=== PATIENT | male | born 1955 | race Caucasian/White ===

== ENCOUNTER 2018-10-31 18:33 | Observation (INO) | payer OTHER ==
[2018-10-31 19:46] LABS: #Basophils 0.1 thou/uL (0.0-0.2); #Eosinphils 0.5 thou/uL (0.0-0.7); #Lymphocytes 2.5 thou/uL (1.20-3.40); #Monocytes 0.8 thou/uL (0.11-0.59); #Neutrophils 5.7 thou/uL (1.40-6.50); %Basophils 0.7 % (0.0-1.0); %Eosinophils 4.9 % (0.0-10.0); %Lymphocytes 26.4 % (21.0-51.0); %Monocytes 8.1 % (0.0-10.0); Hemoglobin 15.6 g/dL (14.0-18.0); Mean Corpuscular HGB CONC 32.8 g/dL (32.0-36.0); Mean Corpuscular Hemoglobin 29.3 pg (27.0-31.0); Mean Corpuscular Volume 89.3 fL (78.0-98.0); Mean Platelet Volume 6.9 fL (7.4-10.4); Platelet Count 194 thou/uL (130-400); RBC Distribution Width 12.3 % (11.5-14.5); Red Blood Cell (RBC) Count 5.32 mill/uL (4.70-6.10); White Blood Cell (WBC) Count 9.6 thou/uL (4.8-10.8)
--- NOTE | 2018-10-31 20:00 | RAD ---
Portable chest: HISTORY: Syncope COMPARISON: 12/10/2011 FINDINGS: Lung jennings are clear. Heart and mediastinum appear unremarkable. Vascularity is normal. Visualized osseous structures unremarkable. IMPRESSION: No acute finding
--- NOTE | 2018-10-31 20:02 | RAD ---
EXAM: Right forearm: 2 views INDICATIONS: Trauma COMPARISON: None. FINDINGS: No fracture. No osseous abnormality. IMPRESSION: No acute finding
[2018-10-31 20:06] LABS: ALT (SGPT) 35 U/L (8-55); AST (SGOT) 28 U/L (5-34); Albumin 4.3 g/dL (3.4-4.8); Alkaline Phosphatase 54 U/L (40-150); Anion Gap 15 mmol/L (10-20); BUN (Urea Nitrogen) 12 mg/dL (8.4-25.7); Bilirubin, Total 0.9 mg/dL (0.2-1.2); CK (CPK) 90 U/L (30-200); Calc. Creatinine Clearance 0 mL/min (70-130); Calcium 9.9 mg/dL (7.8-10.44); Carbon Dioxide 23 mmol/L (23-31); Chloride 102 mmol/L (98-107); Estimated GFR-MDRD 89; Globulin 2.9 g/dL (2.4-3.5); Glucose 139 mg/dL (80-115); Protein, Total 7.2 g/dL (5.8-8.1); Sodium 136 mmol/L (136-145)
--- NOTE | 2018-10-31 20:46 | CT ---
CT HEAD WITHOUT CONTRAST: 10/31/18 INDICATIONS: Syncope. COMPARISON: 12/10/11. FINDINGS: Ventricles have normal size and position. No evidence of mass, edema, hemorrhage, or infarct. The sin uses are clear. Tiny calcification along the dural surface anteriorly on the right probably represents a tiny calcifi ed meningioma, unchanged from the prior exam. IMPRESSION: No acute process. POS: [facility]
[2018-10-31 21:27] LABS: Bacteria/HPF None Seen HPF (None Seen); Bilirubin Negative (Negative); Blood, Urine Negative (Negative); Clarity Clear (Clear); Glucose, Urine (Dipstick) Normal (Negative); Leukocyte 25 Leu/uL (Negative); Nitrite Negative (Negative); Protein, Urine (Dipstick) Negative (Neg-Trace); RBC/HPF 0-3 HPF (0-3); Squamous Epithelial 0-3 HPF (0-3); Urobilinogen Normal mg/dL (Less than 2)
--- NOTE | 2018-10-31 21:45 | PDOC.FPRHP ---
Addendum entered and electronically signed by Juan Ramon Jang DO 11/01/18 04 :22: Pt has 1st degree heart block not prolonged QT Original Note: - History of Present Illness Chief Complaint: Syncope History of Present Illness: Pt is a 63yo male who presents to the ED for syncope, diarrhea, and generalized weakness. Pt states that last night around 2100 he was sitting in a chair when he got up and immediately felt dizzy and lost consciousness. He states that he woke up three hours later feeling "funny". Pt states he feels he injured his right forearm and hit his head during the fall. Today the pt stated that he stayed home from work and in the afternoon developed N/V/D and generalized weakness with one episode of fecal incontinence before he could make it to the bathroom. He also notes that getting up from his bed and the toilet today he had near syncopal episodes. He denies having any focal weakness or numbness but states that coworkers came to check on him this evening and felt his speech may have been slightly slurred and suggested he come to the ED. Pt feels that his speech is normal now and friend accompanying him agrees. Pt's friend accompanying him states that the pt also told her about a time 1-2 weeks ago where his legs quickly gave out on him without warning. He states that the episodes the last couple days felt very different. Pt has a history of BERT and is supposed to be on Cpap but does not use it. Pt has been borderline diabetic for a long time and recently was told he has diabetes although is not on any medications for it. He notes pedal neuropathy bilaterally. Pt notes that he has had some mild dysuria for the past 3 months, denies history of BPH however is on flomax. Denies any history of UTI. ED Course: 1L bolus of NS, normal head CT, CXR, forearm xray, and EKG. Creatinine, trops, BNP, WBC, Hgb WNL - Allergies/Adverse Reactions Allergies Allergy/AdvReac Type Severity Reaction Status Date / Time No Known Allergies Allergy Verified 10/31/18 23:56 - Home Medications Medication Instructions Recorded Confirmed Type Aspirin [Aspir-Low] 81 mg PO HS 10/31/18 11/01/18 History DULoxetine HCl [Duloxetine HCl] 30 mg PO HS 10/31/18 10/31/18 History Fluticasone Propionate [Flonase 1 spray EA NARE DAILY PRN 10/31/18 11/01/18 History Nasal [place]] Gabapentin 1 - 2 cap PO HS 10/31/18 10/31/18 History Lactobacillus Acidophilus 1 capsule PO DAILY 10/31/18 11/01/18 History [Probiotic] Metoprolol Succinate [Toprol XL] 100 mg PO HS 10/31/18 10/31/18 History [place]-3S/DHA/EPA/Fish Oil [Fish 1 each PO BID 10/31/18 11/01/18 History Oil [place]-3 Softgel] Pravastatin Sodium [Pravachol] 20 mg PO HS 10/31/18 10/31/18 History Tamsulosin HCl 0.4 mg PO HS 10/31/18 10/31/18 History Zolpidem Tartrate 10 mg PO HS 10/31/18 10/31/18 History tiZANidine HCl [Tizanidine HCl] 4 mg PO HS 10/31/18 11/01/18 History - History PMHx: CAD, DM, HTN, gout, kidney stones PSHx: Cardiac cath with stent, Rt knee, tonsillectomy, sinus surgery FHx: Social: Remote hx of tobacco use - Review of Systems General: reports: fatigue. denies: fever/chills Respiratory: denies: shortness of breath Cardiovascular: denies: chest pain, palpitation, edema Gastrointestinal: reports: nausea, vomiting, diarrhea. denies: abdominal pain Genitourinary: reports: incontinence (fecal x1) Skin: denies: rashes Musculoskeletal: reports: pain (right forearm). denies: swelling Neurological: reports: syncope, weakness (generalized). denies: numbness, seizure - Vital signs BP: [] HR: [] RR: [] Tmax: [] Pox: []% on [] Wt: [] - Physical Exam Constitutional: NAD, awake, alert and oriented, well developed HEENT: normocephalic and atraumatic -HEENT: dry mucous membranes Neck: FROM, no bruits -Neck: Slight JVD Heart: RRR, normal S1/S2, pulses present -Heart: Distant heart sounds Lungs: no respiratory distress, good air movement, no wheezing Abdomen: soft, non-tender, bowel sounds present Musculoskeletal: normal tone, ROM grossly normal Neurological: no focal deficit, CN II-XII intact, normal sensation Skin: no rash/lesions Psychiatric: normal mood and affect, good judgment and insight, intact recent and remote memory FMR H&P: Results - Labs Result Diagrams: 10/31/18 19:37 10/31/18 19:37 Lab results: WBC 9.6 thou/uL (4.8-10.8) 10/31/18 19:37 Hgb 15.6 g/dL (14.0-18.0) 10/31/18 19:37 Hct 47.5 % (42.0-52.0) 10/31/18 19:37 MCV 89.3 fL (78.0-98.0) 10/31/18 19:37 Plt Count 194 thou/uL (130-400) 10/31/18 19:37 Neutrophils % 60.0 % (42.0-75.0) 10/31/18 19:37 Sodium 136 mmol/L (136-145) 10/31/18 19:37 Potassium 4.0 mmol/L (3.5-5.1) 10/31/18 19:37 Chloride 102 mmol/L (98-107) 10/31/18 19:37 Carbon Dioxide 23 mmol/L (23-31) 10/31/18 19:37 BUN 12 mg/dL (8.4-25.7) 10/31/18 19:37 Creatinine 0.86 mg/dL (0.7-1.3) 10/31/18 19:37 Glucose 139 mg/dL (80-115) H 10/31/18 19:37 Calcium 9.9 mg/dL (7.8-10.44) 10/31/18 19:37 Total Bilirubin 0.9 mg/dL (0.2-1.2) 10/31/18 19:37 AST 28 U/L (5-34) 10/31/18 19:37 ALT 35 U/L (8-55) 10/31/18 19:37 Alkaline Phosphatase 54 U/L (40-150) 10/31/18 19:37 Creatine Kinase 90 U/L (30-200) 10/31/18 19:37 B-Natriuretic Peptide 74.8 pg/mL (0-100) 10/31/18 19:37 Serum Total Protein 7.2 g/dL (5.8-8.1) 10/31/18 19:37 Albumin 4.3 g/dL (3.4-4.8) 10/31/18 19:37 Urine Ketones Negative mg/dL (Negative) 10/31/18 21:14 Urine Blood Negative (Negative) 10/31/18 21:14 Urine Nitrite Negative (Negative) 10/31/18 21:14 Ur Leukocyte Esterase 25 Deejay/uL (Negative) 10/31/18 21:14 Urine RBC 0-3 HPF (0-3) 10/31/18 21:14 Urine WBC 4-6 HPF (0-3) A 10/31/18 21:14 Ur Squamous Epith Cells 0-3 HPF (0-3) 10/31/18 21:14 Urine Bacteria None Seen HPF (None Seen) 10/31/18 21:14 - Radiology Interpretation CT scan - head Status: report reviewed by me (No acute process, old unchanged meningioma) Chest x-ray Status: report reviewed by me (No acute process) Other Status: report reviewed by me (Rt forearm - no acute process) FMR H&P: A/P - Problem List (1) Syncope and collapse Status: Acute Code(s): R55 - SYNCOPE AND COLLAPSE - Plan # Syncope Likely orthostatic hypotension vs Cardiogenic vs Neurogenic vs Vasovagal vs Medication Pt has history of CAD w/ stent placement in 2013. Na, K WNL. He is unsure of events before/after fall but denied tongue lac, incontinence. Hx of neuropathy could affect autonomics. Dry on exam. He had not taken ambien before the episode. He currently is followed by Dr. Sharp, pm technician, who he sees [id number] and is due for an appt. - Orthostatics pending - Tele - CTA Head and Neck pending, echo pending - Phosp, Mg pending - Stress test ordered for morning - d/c ambien - cont home aspirin 81 mg - trop trending, initial negative - d/c any agents that contribute to hypotension, d/c tizanidine # Lower Extremity Neuropathy - continue home meds # HTN - held metoprolol for stress test # Insomnia - d/c ambien # BPH - continue home meds but follow up as outpt as he remains symptomatic # Gout - continue home preventive meds # HLD - cont home meds # Elevated Glucose Hx of borderline DM - follow up as outpt # Prolonged QT Diet: NPO after midnight Fluids: 125 mls/hr NS DVT Prophylaxis: Lovenox Code Status: Full FMR H&P: Upper Level - Pertinent history 63 year old male presents after two syncopal episodes yesterday. Patient states that yesterday evening he was sitting on the couch, and upon standing up he got dizzy and fell. He reports being out for three hours. He woke up and felt "weird ". He proceeded to go to bed. In the middle of the night he got up to use the restroom and again "fell over". He reports feeling weak today. He also had several episodes of diarrhea and emesis today which he does not report having yesterday. Patient states that he did have one other fall a few weeks ago. He states his legs "crumbled" underneath him at that time. Patient denies chest pain, shortness of breath, fever, or chills. Patient reports he only came to the ER today, because he did not show up for work today and the people he worked with got worried and showed up at his house. They strongly encouraged him to go to the ER, and so he obliged. Patient denies any unilateral weakness. Patient has PMH significant for CAD s/p stent placement x2 approximately 4 years ago. He states that he has been compliant with medications. - Pertinent findings General: Alert and oriented x3. NAD. HEENT: Dry MM. EOMI. PERRL. Card: Distant heart sounds. No audible murmur. RRR. Resp: Very distant breath sounds. Difficult exam due to body habitus. Abdomen: Mild suprapubic tenderness. Ext: No edema. Neuro: No focal deficits. - Plan Date/Time: 10/31/182144 ILilian, have evaluated this patient and agree with findings/plan as outlined by financial services intern resident. Pertinent changes/additions are listed here. Syncope likely 2/2 orthostatic hypotension - Mild dehydration s/p 1L fluid bolus in ED - IVF NS at 100 mL/hr - NPO at midnight for cardiac stress test, will hold BB - Trend troponin (initial neg) - Echo pending - Orthostatic vital signs pending - Rule out carotid artery occlusion via CTA neck - Continuous telemetry monitoring - 1st degree heart block on EKG - Mg and P pending, other electrolytes WNL - Will obtain risk stratification labs to include FLP, HgA1c, TSH - CXR: No acute abnormalities - BNP 74 Lower Extremity Neuropathy - Continue home meds HTN - Continue home meds Insomnia - Would hold ambien given recent events BPH - continue home meds Gout - Continue home preventive meds HLD - Cont home meds DM type II - Recent diagnosis per patient - Does not appear to be on any medications - Will check HgA1c DVT Prophylaxis: Lovenox Code Status: Full Dispo: Obs on telemetry. Addendum - Attending - Attending Attestation Date/Time: 10/31/18 0057 I personally evaluated the patient and discussed the management with resident team I agree with the History, Examination, Assessment and Plan documented above with any addition or exceptions noted below. 63 yo male with history of DM, HTN, HLD, CAD, BERT, former smoker, BPH presents for evaluation of passing out. Patient reports symptoms of presyncope and syncope over the past week. 3 episodes yesterday. Lives alone. States last night upon getting up from chair became dizzy. Patient states this was around 1700. Next memory recall patient was on the ground in front of his chair and it was 0000. Patient denies associated symptoms. Did not notify anyone. Stating "I'm stubborn." Able to get to bed. Not able to really fall asleep but denies any symptoms. Woke this morning. Again felt dizzy. Had to brace self when walking to bathroom. Getting up from toliet, again dizzy. Reports he almost passed out in the tube. Patient reports he did not go to work today. Since not showing up members from work and local police arrived at his home. EMS was contacted and patient brought to [facility]. Vitals, labs, imaging, and medical record reviewed. Will admit patient to tele. Monitor closely throughtout the night for arrhythmias. Trend labs. Stress and ECHO in AM. CTA neck pending. Add orthostatic vitals with BP and HR. Patient with complications of neuropathy could potentially have complications with carotid sinus. Trend trop to rule out ischemic changes. If negative findings on initial workup will need follow up tilt testing and cards event monitoring. Arleen
[2018-10-31 23:10] LABS: Troponin I Less than 0.010 ng/mL (< 0.028)
[2018-10-31 23:50] VITALS: BMI 39.9
[2018-11-01] MEDS ORDERED: Ondansetron ODT 4 MG TAB PO PRN (00:12)
[2018-11-01] MEDS ORDERED: Acetaminophen 325 MG TAB PO PRN (00:12)
[2018-11-01] MEDS ORDERED: Ondansetron PF 4 MG/2 ML Vial IVP PRN (00:12)
[2018-11-01 00:31] LABS: Phosphorus 3.3 mg/dL (2.3-4.7)
[2018-11-01] MEDS: Sodium Chloride 0.9% 1,000 ML IV SCH ×3 (00:42→15:47)
[2018-11-01 02:35] LABS: Troponin I 0.036 ng/mL (< 0.028)
[2018-11-01] MEDS ORDERED: Fluticasone Propionate Nasal Spray 16 gm Bottle NASAL PRN (03:44)
[2018-11-01 07:09] LABS: Hemoglobin A1c 6.7 % (4.0-6.0)
--- NOTE | 2018-11-01 07:12 | PDOC.FM ---
- Subjective Subjective: Pt reports recently losing 20 lbs intentionally and skipping meals. He also reports increased stress at work. He has been drinking plenty of water. Overnight, no episodes of dizziness, syncope, or chest pain. - Objective MAR Reviewed: Yes Vital Signs & Weight: Vital Signs (12 hours) Temp Pulse Resp BP BP Pulse Ox 11/01/18 04:26 97.6 F 67 19 163/80 H 95 10/31/18 23:05 97.8 F 62 18 162/75 H 94 L Weight Weight 133.764 kg I&O: 10/31/18 11/01/18 11/02/18 06:59 06:59 06:59 Intake Total 586 Output Total 950 Balance -364 Result Diagrams: 10/31/18 19:37 10/31/18 19:37 Phys Exam - Physical Examination Constitutional: NAD HEENT: moist MMs Respiratory: no wheezing, clear to auscultation bilateral Cardiovascular: RRR, no significant murmur Gastrointestinal: soft, no distention, positive bowel sounds Musculoskeletal: no edema, pulses present Neurological: moves all 4 limbs Psychiatric: A&O x 3 Skin: cap refill <2 seconds Dx/Plan (1) HTN (hypertension) Code(s): I10 - ESSENTIAL (PRIMARY) HYPERTENSION Status: Acute (2) Insomnia Code(s): G47.00 - INSOMNIA, UNSPECIFIED Status: Acute (3) BPH (benign prostatic hyperplasia) Code(s): N40.0 - BENIGN PROSTATIC HYPERPLASIA WITHOUT LOWER URINRY TRACT SYMP Status: Acute (4) Gout Code(s): M10.9 - GOUT, UNSPECIFIED Status: Acute (5) Syncope and collapse Code(s): R55 - SYNCOPE AND COLLAPSE Status: Acute - Plan Plan: This is a 63 yo male with a pmh of HTN, BPH, Gout Syncope likely 2/2 orthostatic hypotension, plan to rule out cardiogenic -Normal orthostatics after rescussitation -Pending Echo -Normal CT and CTA head -Pending stress test -DC agents that can contribute to dizziness or orthostasis Lower Extremity Neuropathy -Continue home gabapentin HTN -Metoprolol held for stress test Insomnia -DC ambien and consider other alternatives BPH -continue flomax but consider finasteride if this continues to be an issue Gout -Continue preventative meds HLD -COntinue home meds DM2, newly diagnosed -Hemoglobin A1c is 6.7 -Consider starting on metformin ER Prolonged QT -Avoid medications that worsen condition Addendum - Attending - Attending Attestation Date/Time: 11/01/18 1855 I personally evaluated the patient and discussed the management with Dr. West. I agree with the History, Examination, Assessment and Plan documented above with any addition or exceptions noted below. The patient is feeling better. Echo was being taken during our visit. Results are pending. If they are normal, pt will likely d/c home.
[2018-11-01 07:23] LABS: Cardiac Risk 5.7 (Less than 4.5)
[2018-11-01] MEDS ORDERED: hydrALAZINE 20 MG/ML VIAL SLOW IVP PRN (07:23)
[2018-11-01 07:28] LABS: Troponin I Less than 0.010 ng/mL (< 0.028)
--- NOTE | 2018-11-01 08:03 | CT ---
PRELIMINARY REPORT/[facility]/EMERGENCY AFTER HOURS PROCEDURE: EXAM: CT Angiography Head Without And With Contrast EXAM DATE/TIME: 11/01/2018 1:11 AM CLINICAL HISTORY: 63 years old, male; Syncope and collapse; Patient HX: Syncope episode x3 unwitnessed at home TECHNIQUE: Imaging protocol: Computed tomographic angiography images of the head without and with intravenous contrast using CT angiography protocol. Coronal and sagittal reformatted images were created and reviewed. 3D rendering: MIP reconstructed images were created and reviewed. COMPARISON: No relevant prior studies available. FINDINGS: Right internal carotid artery: Unremarkable. Intracranial segment is patent with no significant stenosis. No aneurysm. Right anterior cerebral artery: Unremarkable. No occlusion or significant stenosis. No aneurysm. Right middle cerebral artery: Unremarkable. No occlusion or significant stenosis. No aneurysm. Right posterior cerebral artery: There is origin of the right posterior cerebral artery, a norm al anatomic variant. No stenosis or occlusion. Right vertebral artery: Unremarkable. No occlusion or significant stenosis. No aneurysm. Left internal carotid artery: Unremarkable. Intracranial segment is patent with no significant stenosis. No aneurysm. Left anterior cerebral artery: Unremarkable. No occlusion or significant stenosis. No aneurysm. Left middle cerebral artery: Unremarkable. No occlusion or significant stenosis. No aneurysm. Left posterior cerebral artery: Unremarkable. No occlusion or significant stenosis. No aneurysm. Left vertebral artery: Unremarkable. No occlusion or significant stenosis. No aneurysm. Basilar artery: Unremarkable. No occlusion or significant stenosis. No aneurysm. HEAD: Brain: Unremarkable. No hemorrhage. No significant white matter disease. No edema. Ventricles: Normal. No ventriculomegaly. Bones/joints: Unremarkable. No acute fracture. Sinuses: Visualized sinuses are normal. No fluid levels. Mastoid air cells: Visualized mastoids are normal. No mastoid effusion. Soft tissues: Unremarkable. IMPRESSION: No acute abnormality. Thank you for allowing us to participate in the care of your patient. Dictated and Authenticated by: Lauren Thakkar MD 11/01/2018 1:50 AM Central Time ([place] & [place]) FINAL INTERPRETATION CT ANGIOGRAM HEAD CT ANGIOGRAM NECK: Date: 11/01/18 COMPARISON: None. HISTORY: 3 episodes of syncope. FINDINGS: I agree with the preliminary report. Axial CT imaging through the head and neck provided at 1.25 mm intervals with IV contrast using CT an giogram protocol. Coronal and sagittal 3-D reformatted imaging provided. The imaged lung apices are unremarkable. The imaged paranasal sinuses and mastoid air cells are grossly unremarkable. The retroantral fat and parapharyngeal fat appears clear. Submandibular glands and parotid glands are grossly unremarkable aside from fatty infiltration of bilateral parotid glands. Limited assessment of the aerodigestive tract appears grossly unremarkable. No lymphadenopathy is francisca dent within the neck. The origin of the left subclavian artery, left common carotid artery, innominate artery, right subcla vian artery and right common carotid artery appear grossly unremarkable. On the basis of NASCET criteria, no hemodynamically significant stenosis is seen involving the common carotid artery on either side. There is mild atherosclerotic calcification at the origin of the right internal carotid artery with n o associated stenosis. There is partially calcified plaque involving the proximal 2 cm of the left internal carotid artery. There is mild associated stenosis involving the left internal carotid artery in this region, estimated at approximately 25-30%. No hemodynamically significant stenosis noted involving either int ernal carotid artery. The distal aspect of bilateral common carotid arteries demonstrate a medialized retropharyngeal course. The vertebral artery is patent bilaterally. The basilar artery and its branches are patent. There is a patent posterior communicating artery bilaterally. The left posterior cerebral artery probably demonstrates a origin. No saccular aneurysm, high-grade stenosis, or vascular occlusion is seen involving the posterior circulation. The ICA bifurcation is unremarkable bilaterally. The A1 and M1 segment is patent bilaterally. MCA bif urcation appears grossly unremarkable bilaterally. The distal MCA and MIRIAM branches appear grossly unremarkable. There is a benign hemangioma within the T1 vertebral body. There is degenerative change at C6-7 with no worrisome lytic or blastic bone lesion noted. IMPRESSION: No acute findings within the head or neck. Numerous incidental findings as detailed above. Code QA Transcribed Date/Time: 11/01/2018 8:21 AM
[2018-11-01] MEDS ORDERED: Enoxaparin Sodium 40 MG/0.4 ML SYRINGE SC SCH (09:00)
[2018-11-01] MEDS ORDERED: Fish Oil 1,000 MG CAP PO SCH (09:00)
[2018-11-01] MEDS ORDERED: Lactinex Tablet PO SCH (09:00)
[2018-11-01] MEDS ORDERED: Iopamidol 370 76% 100 ML VIAL ONE (10:51)
--- NOTE | 2018-11-01 13:11 | NM ---
Radionucleotide stress only myocardial perfusion scan with CT attenuation correction and SPECT imagin g Left ventricular wall motion evaluation and ejection fraction HISTORY: Chest pain. Syncope. FINDINGS: Lexiscan protocol. Homogeneous uptake of radiotracer is present throughout the left ventric ular myocardium. Small amount of diaphragmatic attenuation. QGS analysis of gated SPECT images shows no focal wall motion abnormalities. Ejection fraction calcul ated at 57%. IMPRESSION: Normal myocardial stress only exam. Normal LVEF.
[2018-11-01] MEDS ORDERED: Regadenoson 0.4 MG/5 ML SYRINGE ONE (15:28)
[2018-11-01 16:12] VITALS: BP 154/82; TEMP 98.4
[2018-11-01] MEDS ORDERED: tiZANidine HCl 4 MG TAB PO SCH (21:00)
[2018-11-01] MEDS ORDERED: Gabapentin 300 MG CAP PO SCH (21:00)
[2018-11-01] MEDS ORDERED: Pravastatin Sodium 20 MG TAB PO SCH (21:00)
[2018-11-01] MEDS ORDERED: Aspirin 81 mg Enteric Coated Tablet PO SCH (21:00)
[2018-11-01] MEDS ORDERED: Tamsulosin HCl 0.4 MG CAP PO SCH (21:00)
[2018-11-01] MEDS ORDERED: DULoxetine 30 MG CAP PO SCH (21:00)
== END 2018-11-01 17:04 | disposition home or self-care (01) ==
LOC: ERS 18:33 → 2SW 21:45
PROVIDERS: ADMIT Student in an Organized Health Care Education/Training Program; ATTEND Student in an Organized Health Care Education/Training Program
DX: R55 Syncope and collapse (principal); I44.0 Atrioventricular block, first degree; I10 Essential (primary) hypertension; E11.40 Type 2 diabetes mellitus with diabetic neuropathy, unspecified; E78.5 Hyperlipidemia, unspecified; G47.00 Insomnia, unspecified; M10.9 Gout, unspecified; N40.0 Benign prostatic hyperplasia without lower urinary tract symptoms; Z79.82 Long term (current) use of aspirin; Z79.899 Other long term (current) drug therapy; Z87.891 Personal history of nicotine dependence
CPT/HCPCS: 36415; 70450; 70496; 70498; 71045; 78452; 80053; 80061; 81003; 81015; 82550; 83036; 83735; 83880; 84100; 84443; 84484; 85025; 93005; 93017; 93306; 94760; 96360; 96361; A9500; G0378; J1650; J2785; Q9967